=== PATIENT | female | born 1930 | race Caucasian/White ===

== ENCOUNTER 2018-07-17 14:25 | Outpatient (CLI) | payer MEDICARE ==
[2018-07-17 15:09] LABS: Hemoglobin 14.3 g/dL (12.0-16.0); Mean Corpuscular HGB CONC 31.9 g/dL (32.0-36.0); Mean Corpuscular Hemoglobin 29.9 pg (27.0-31.0); Mean Corpuscular Volume 93.8 fL (78.0-98.0); Mean Platelet Volume 7.2 fL (7.4-10.4); Platelet Count 244 thou/uL (130-400); RBC Distribution Width 12.9 % (11.5-14.5); Red Blood Cell (RBC) Count 4.77 mill/uL (4.20-5.40)
[2018-07-17 15:33] LABS: PTT 28.9 SEC (22.9-36.1); Prothrombin Time 13.5 SEC (12.0-14.7)
[2018-07-17 15:45] LABS: Anion Gap 12 mmol/L (10-20); BUN (Urea Nitrogen) 14 mg/dL (9.8-20.1); Calc. Creatinine Clearance 0 mL/min (70-130); Calcium 9.8 mg/dL (7.8-10.44); Carbon Dioxide 27 mmol/L (23-31); Chloride 103 mmol/L (98-107); Estimated GFR-MDRD 78; Glucose 105 mg/dL (83-110); Potassium 4.1 mmol/L (3.5-5.1); Sodium 138 mmol/L (136-145)
== END 2018-07-17 14:26 | disposition home or self-care (01) ==
LOC: LABBT 14:25
PROVIDERS: ATTEND Urology
DX: Z01.812 Encounter for preprocedural laboratory examination (principal); N32.9 Bladder disorder, unspecified
CPT/HCPCS: 80048; 85027; 85610; 85730

== ENCOUNTER 2018-07-23 11:07 | Day surgery (SDC) | payer MEDICARE ==
[2018-07-17 14:43] VITALS: BMI 23.6
[2018-07-23] MEDS ORDERED: cefTRIAXone\\ROCEPHIN 2 GM in Sodium Chloride 0.9% 100 ML IVPB SCH (12:15)
[2018-07-23] MEDS ORDERED: Fentanyl 100 MCG/2 ML VIAL ONE (12:51)
[2018-07-23] MEDS ORDERED: Glycopyrrolate 0.2 MG/ML 5 ML SYRINGE ONE (13:52)
[2018-07-23] MEDS ORDERED: PROPOFOL 200 MG/20 ML VIAL ONE (13:52)
[2018-07-23] MEDS ORDERED: ePHEDrine/0.9% NaCl/PF SYRINGE 50 mg/10 ml ONE (13:52)
[2018-07-23] MEDS ORDERED: Lidocaine 1% PF 5 ML VIAL ONE (13:52)
--- NOTE | 2018-07-23 14:20 | OP ---
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 POSTOPERATIVE DIAGNOSES: Colovesical fistula and bladder lesion. PROCEDURE: Cystoscopy, bladder biopsies. SURGEON: Elai Melton M.D. ANESTHESIA: General. ESTIMATED BLOOD LOSS: Minimal. FINDINGS: There was just one very small red area that did not even appear to be open at this point, could not get any air or any other extra vesicle drainage through it. It looks actually much smaller and blander than it did in my office 2 to 3 weeks ago when I initially saw her. We did biopsy the m ucosa just surrounding this area. OPERATIVE TECHNIQUE: After obtaining written and verbal consent from the patient after receiving IV antibiotics she was taken the operating suite. She was placed in supine position on the treatment ta ble. PlexiPulses were placed on her lower extremities and turned on. She was given a general anesth etic, oral obturator intubation. She was placed in the dorsal lithotomy position. She was sterilely prepped and draped. Cystoscopy was performed with a 22-Kiswahili sheath. This was well lubricated, pa ssed under direct vision through the male urethra into the urinary bladder with aid of a 30 degree le ns and a video camera and monitor. The bladder was filled and emptied a number of times. This was e xamined with both a 30 and the 70-degree lens with the findings above. There were 2 ureteral orifice s noted in normal position with good efflux. This site could not with bimanual exam with the cystosc ope in, could not get anything to exit into the bladder from an extra vesicle source. No air, no oth er contents or pus. As mentioned, it looks much smaller and blander than it did look in the office. It may be that this fistula has closed. Because of the mucosa around it we biopsied just a couple c old cups and we just cauterized the biopsy sites. A catheter was not placed. The patient was then t adelaideen out of dorsal lithotomy position, awakened, extubated, and taken by aidan to the recovery ro om.
== END 2018-07-23 16:40 | disposition home or self-care (01) ==
LOC: SDC 11:07
PROVIDERS: ATTEND Urology
PROC: 0TBB8ZX Excision of Bladder, Via Natural or Artificial Opening Endoscopic, Diagnostic (ICD-10-PCS; principal; 2018-07-23)
DX: N30.80 Other cystitis without hematuria (principal); N32.1 Vesicointestinal fistula; F32.9 Major depressive disorder, single episode, unspecified; Z86.73 Personal history of transient ischemic attack (TIA), and cerebral infarction without residual deficits; Z87.891 Personal history of nicotine dependence; Z79.899 Other long term (current) drug therapy
CPT/HCPCS: 88305; J0696; J2001; J2704; J3010; J7050

== ENCOUNTER 2019-04-11 10:42 | Inpatient (IN) | payer MEDICARE, MEDICAID ==
[2019-04-11] MEDS ORDERED: Ondansetron PF 4 MG/2 ML Vial ONE (11:23)
--- NOTE | 2019-04-11 11:28 | RAD ---
XR Chest 1 View Portable History: Dizziness and confusion Comparison: None. Findings: Heart size is enlarged. The lungs are hyperinflated. No pneumothorax. Mild tortuosity of th e aorta. No focal airspace consolidation. No acute osseous abnormality. Impression: Chronic findings. No acute intrathoracic abnormality.
[2019-04-11 11:48] LABS: Hemoglobin 9.5 g/dL (12.0-16.0); Mean Corpuscular HGB CONC 32.7 g/dL (32.0-36.0); Mean Corpuscular Hemoglobin 30.3 pg (27.0-31.0); Mean Corpuscular Volume 92.5 fL (78.0-98.0); Mean Platelet Volume 10.1 fL (7.4-10.4); Platelet Count 66 thou/uL (130-400); RBC Distribution Width 15.1 % (11.5-14.5); Red Blood Cell (RBC) Count 3.14 mill/uL (4.20-5.40); White Blood Cell (WBC) Count 5.3 thou/uL (4.8-10.8)
[2019-04-11 11:59] LABS: Bacteria/HPF None Seen HPF (None Seen); Bilirubin Negative (Negative); Blood, Urine Negative (Negative); Clarity Clear (Clear); Glucose, Urine (Dipstick) Normal (Negative); Leukocyte 25 Leu/uL (Negative); Nitrite Negative (Negative); Protein, Urine (Dipstick) 20 mg/dL (Neg-Trace); RBC/HPF 0-3 HPF (0-3); Squamous Epithelial 0-3 HPF (0-3); Urobilinogen Normal mg/dL (Less than 2); WBC/HPF 0-3 HPF (0-3)
--- NOTE | 2019-04-11 12:03 | CT ---
Exam: Head CT without contrast HISTORY: Weakness. Dizziness. Confusion. COMPARISON: 04/20/2018 FINDINGS: Hemorrhage: There is a intraparenchymal hemorrhage/hematoma centered in the right frontal lobe measur ing 2.1 x 1.5 cm. There is a small focus of adjacent parenchymal hemorrhage as well as subarachnoid blood. There is associated edema in the right frontal lobe with sulcal effacement. There is evidence of subarachnoid blood along the left frontal, posterior left temporal, left occipital and posterior right temporal subarachnoid space. There is a small extra-axial hematoma along the left occipital con vexity likely representing a small subdural. There is also evidence of extra-axial hematoma along the left frontal and temporal extra-axial space. Brain parenchyma: The remainder the cerebrum is unremarkable. There is no significant midline shift. Basilar cisterns are patent. Ventricular system: Ventricles and sulci are patent and symmetric. Calvarium: Intact. Sinuses and mastoid air cells: Adequate aeration. IMPRESSION: 1. Intraparenchymal hemorrhage involving the right frontal lobe along with subarachnoid blood along t he right frontal sulci, left temporal, left occipital and right temporal sulci. 2. Small left occipital, frontal and temporal subdural hematoma Results study discussed with Pantera Lopez nurse practitioner 04/11/2019 at 11:57 AM Code CR
[2019-04-11 12:05] LABS: ALT (SGPT) 24 U/L (8-55); AST (SGOT) 52 U/L (5-34); Albumin 2.5 g/dL (3.4-4.8); Alkaline Phosphatase 188 U/L (40-150); Anion Gap 16 mmol/L (10-20); BUN (Urea Nitrogen) 92 mg/dL (9.8-20.1); Bilirubin, Total 0.7 mg/dL (0.2-1.2); Calc. Creatinine Clearance 0 mL/min (70-130); Calcium 8.3 mg/dL (7.8-10.44); Carbon Dioxide 20 mmol/L (23-31); Chloride 103 mmol/L (98-107); Estimated GFR-MDRD 7; Globulin 3.3 g/dL (2.4-3.5); Glucose 177 mg/dL (83-110); Potassium 5.7 mmol/L (3.5-5.1); Protein, Total 5.8 g/dL (6.0-8.3); Sodium 133 mmol/L (136-145)
--- NOTE | 2019-04-11 12:05 | CT ---
Exam: CT cervical spine without contrast HISTORY: Trauma. Pain. COMPARISON: None FINDINGS: No craniocervical dissociation. Appropriate alignment of the lateral masses of C1 and C2. Intact odon toid process Appropriate alignment of the facets. Soft tissue neck structures: No mass, lymphadenopathy or hematoma. No prevertebral soft tissue swelli ng. Upper mediastinum and lung apices: Unremarkable Central spinal canal: There are varying degrees of central canal stenosis and neural foraminal narrow ing on the basis of degenerative change. Evaluation is limited by technique. Vertebral bodies: Cervical spine vertebral body height is maintained. No fracture. There is diffuse b one demineralization IMPRESSION: No fracture.
[2019-04-11 12:12] LABS: Band 11 % (5-11); Eosinophils 1 % (0-10); Lymphocytes 18 % (21-51); MDiff Complete? YES; Monocytes 8 % (0-10); Neutrophil 62 % (42-75); Platelet Morphology Comment Appears Decreased; Polychromasia SLIGHT = 2-3 cells (100X) (0-2/hpf)
[2019-04-11] MEDS ORDERED: Dextrose 5% in Water 1,000 ML IV PRN (13:06)
[2019-04-11] MEDS ORDERED: Ondansetron PF 4 MG/2 ML Vial IVP PRN (13:06)
[2019-04-11] MEDS ORDERED: Ondansetron ODT 4 MG TAB PO PRN (13:06)
[2019-04-11] MEDS ORDERED: Dextrose 50% Abboject 50 ML SYRINGE SLOW IVP PRN (13:06)
[2019-04-11] MEDS ORDERED: hydrALAZINE 20 MG/ML VIAL SLOW IVP PRN (13:06)
[2019-04-11] MEDS ORDERED: Sodium Chloride 0.9% 1,000 ML IV SCH (13:15)
[2019-04-11 14:02] LABS: Magnesium 2.2 mg/dL (1.6-2.6); Phosphorus 5.3 mg/dL (2.3-4.7)
[2019-04-11] MEDS ORDERED: Acetaminophen 500 MG TAB PO PRN (14:10)
[2019-04-11 15:00] LABS: Hemoglobin A1c 4.8 % (4.0-6.0)
[2019-04-11 15:15] VITALS: BMI 20.9
[2019-04-11] MEDS: Sodium Bicarbonate 100 MEQ in Dextrose 5% in Water 1,000 ML IV SCH (16:05)
--- NOTE | 2019-04-11 17:00 | HP ---
REQUESTING PHYSICIAN: Dr. Buitrago. CONSULTS: Neurosurgery, Dr. Sherwood. HISTORY OF PRESENT ILLNESS: This is an 88-year-old female, who lives at [facility], who fell approximately 5 days ago. The patient has been weak, dizzy, and confused according to family. Family also reports that the patient had one episode of vomiting this morning. The patient also had low blood pressure and incontinent for the last couple of days. The patient did sustain a bruise to the left side of her head when she fell 5 days ago, but did not have any vomiting after that initial fall. The patient was treated for a UTI recently and has completed all of her oral antibiotics. According to family, the patient takes Lasix for occasional ankle swelling. The family also reports that they have seen a decline in the last approximately 9 months, but significant decline after the fall. The patient was normally able to use a walker before, but has not been able to since the fall. Also, the patient has not been able to feed herself. All subjective information has been collected by the patient's daughters. The patient is awake , alert, oriented to person and place only at this time. Family states she normally knows the date. The patient did receive 1 L of normal saline in the emergency room. The patient also received Zofran IV for nausea. REVIEW OF SYSTEMS: A 10-point review of systems is negative unless otherwise indicated in the above HPI. MEDICATIONS: Lasix prn, ASA 81mg QD, Vitamin D. PAST MEDICAL HISTORY: Denies any past medical history. PAST SURGICAL HISTORY: Biopsy of bladder in 2018 which was benign, hysterectomy. ALLERGIES: DENIES ANY DRUG ALLERGIES. SOCIAL HISTORY: The patient lives in a usp, [place] [facility], former smoker since the patient was 18. According to family, she stopped smoking approximately 15 years ago. No alcohol use. No illicit drug use. PHYSICAL EXAMINATION: VITAL SIGNS: Blood pressure 114/77, pulse 92, respirations 24, temperature 97.3 , and SpO2 of 99% on room air. GENERAL: Elderly appearing female, slow to answer questions, alert to person and place only, follows all simple commands. HEENT: Ecchymosis to the left frontal and temporal area of the head. Pupils equal and reactive at 3 mm bilateral. Mucous membranes are dry. RESPIRATORY: Slightly tachypneic. No retractions. Slightly diminished in the bases. Rhonchi in the right lower lobe. CARDIOVASCULAR: Regular rate and regular rhythm. Distant heart sounds. ABDOMEN: Soft, nontender, and nondistended. Active bowel sounds. EXTREMITIES: Moves all extremities. Strength 5/5. 2+ pitting edema to lower extremities. Positive pedal pulses. NEUROLOGIC: Speech is normal. Cranial nerves intact. No focal sensory deficits. Oriented to person and place only. Follows commands. Slow to answer most questions. LABORATORY DATA: WBC 5.3, RBC 3.14, hemoglobin 9.5, hematocrit 29.1, platelets 66. Sodium 133, potassium 5.7, chloride 103, carbon dioxide 20, anion gap 16, BUN 92 , creatinine 5.84, estimated GFR 7, glucose 177, lactate 3.8, calcium 8.3, phosphorus 5.3, magnesium 2.2. AST 52, ALT 27, alkaline phos 188. Troponin I is 0.014. BNP 80.9. Serum total protein 5.8, albumin 2.5, globulin 3.3, and albumin-globulin ratio 0.8. Urinalysis unremarkable. DIAGNOSTICS: Chest x-ray reveals cardiomegaly, no acute intrathoracic abnormalities. Cervical spine CT, no fracture. Brain CT; impression, right frontal intraparenchymal hemorrhage. Subarachnoid hemorrhage, right frontal, left temporal, left occipital, and right temporal sulci. Small subdural hemorrhage left occipital, frontal, temporal. EKG, sinus rhythm with no ST or T-wave abnormality. IMPRESSION: 1. Status post ground level fall with delayed presentation. 2. Dehydration. 3. Intraparenchymal hemorrhage. 4. Subdural hemorrhage. 5. Subarachnoid hemorrhage. 6. Acute on chronic kidney injury. 7. Hyperkalemia. 8. Lactic acidosis. 9. Thrombocytopenia. 10. Cardiomegaly. PLAN: We will admit the patient to the [facility] with q.2 neuro checks. We will hold the patient's daily aspirin and Lasix. We will obtain strict I's and O's. We will resuscitate the patient and monitor urine output. We will obtain a 2D echo. Neurosurgery has evaluated the patient and states the patient most likely nonsurgical. We will obtain a repeat head CT in the morning. We will obtain sooner for any neuro changes. We will repeat labs in the morning to evaluate renal function. The plan has been discussed with the attending Dr. Silva, who agrees. Job ID: [id number] LEROY
[2019-04-11] MEDS: Famotidine/PF 20 mg/2ml Vial SLOW IVP SCH (20:39)
[2019-04-11] MEDS: Acetaminophen 1,000 MG in Premix Bag 1 BAG IVPB SCH (22:16)
--- NOTE | 2019-04-12 00:06 | CON ---
DATE OF CONSULTATION: This is an 88-year-old woman, who was brought to the [facility] via EMS after onset of altered mental status and reduced level of consciousness. She actually reportedly suffered a fall 5 days ago with visible ecchymosis over the left orbit and forehead. CT scan was performed in the department that reveals a right frontal contusion with surrounding vasogenic edema, as well as a thin left-sided subdural hematoma spanning the right frontotemporal convexity with minimal compression if any of the underlying brain parenchyma. She is on aspirin, but no other blood thinners. Neurosurgery was consulted for these findings. I am seeing the patient at bedside along with Jacquie Siegel, trauma [employer] [employer], who is performing the examination at bedside. I have deferred my examination to her as I speak with family. The patient is awake and interactive. She is oriented to name and date of , as well as that she is in fact in the hospital. Otherwise, she is mostly confused and slow to respond. She has equally round and reactive pupils. Extraocular movements are intact. She does not complain of any significant pain. C-spine is nontender. Range of motion intact in all 4 extremities. She follows commands briskly. From Neurosurgery's perspective, this bleed represent nonsurgical injury and likely has been there since the fall 5 days ago. Given the amount of vasogenic edema, we would recommend repeat imaging in the morning to be certain that this is not an evolving hemorrhage. I discussed with the family that again no intervention is planned unless things dramatically change. She will just need imaging tomorrow and then if that is stable, can be discharged back to the half-way with extended followup around 4 to 6 weeks from now with repeat head CT at that time. This was discussed with trauma team in the room. Job ID: [id number]
[2019-04-12] MEDS ORDERED: Sodium Chloride 0.9% 500 ML IV SCH ×2 (01:15→01:30)
[2019-04-12 01:28] LABS: #Lymphocytes 0.7 thou/uL (1.20-3.40); #Monocytes 0.5 thou/uL (0.11-0.59); #Neutrophils 2.5 thou/uL (1.40-6.50); %Basophils 0.5 % (0.0-1.0); %Eosinophils 0.6 % (0.0-10.0); %Lymphocytes 18.1 % (21.0-51.0); %Monocytes 13.5 % (0.0-10.0); %Neutrophils 67.3 % (42.0-75.0); Hemoglobin 8.3 g/dL (12.0-16.0); Mean Corpuscular HGB CONC 34.1 g/dL (32.0-36.0); Mean Corpuscular Hemoglobin 31.6 pg (27.0-31.0); Mean Corpuscular Volume 92.6 fL (78.0-98.0); Mean Platelet Volume 10.1 fL (7.4-10.4); Platelet Count 58 thou/uL (130-400); RBC Distribution Width 15.1 % (11.5-14.5); Red Blood Cell (RBC) Count 2.64 mill/uL (4.20-5.40); White Blood Cell (WBC) Count 3.7 thou/uL (4.8-10.8)
[2019-04-12 01:43] LABS: Lactic Acid 1.7 mmol/L (0.5-2.2)
[2019-04-12 01:49] LABS: Anion Gap 12 mmol/L (10-20); BUN (Urea Nitrogen) 66 mg/dL (9.8-20.1); Calc. Creatinine Clearance 12 mL/min (70-130); Calcium 8.2 mg/dL (7.8-10.44); Carbon Dioxide 21 mmol/L (23-31); Chloride 106 mmol/L (98-107); Estimated GFR-MDRD 15; Glucose 138 mg/dL (83-110); Magnesium 2.3 mg/dL (1.6-2.6); Phosphorus 4.2 mg/dL (2.3-4.7); Potassium 4.6 mmol/L (3.5-5.1); Sodium 134 mmol/L (136-145)
--- NOTE | 2019-04-12 01:59 | PRG ---
DATE OF SERVICE: 04/11/2019 SUBJECTIVE: The patient was seen today during evening rounds in the IMCU. Patient's daughter at bedside at reported the patient's mentation had not changed. However, she was concerned because the patient was moaning intermittently during her sleep. She was easily arousable and follows commands. She answered most questions with no. Daughter reported that this is normal for her. She has dementia and usually replies no to most questions. She has been n.p.o. and is currently being fluid resuscitated with sodium bicarb at 100 mL/hour. Mentation has not changed and her GCS is 14 with -1 for verbal. OBJECTIVE: VITAL SIGNS: The patient is afebrile, and hemodynamically stable at the time of my evaluation. GENERAL: Frail elderly female, lying in bed with no signs of acute distress. PULMONARY: Equal chest rise and fall. Clear breath sounds bilaterally. No signs of acute respiratory distress. CARDIAC: Regular rate and rhythm. ABDOMEN: Soft, nontender and nondistended. EXTREMITIES: 2+ pulses in all extremities. Gross motor and sensation are intact. NEUROLOGIC: GCS is 14, -1 for verbal. Follows commands, however with equal strength. ASSESSMENT: 1. Status post fall and subsequent decompensation. 2. Failure to thrive. 3. Right frontal intraparenchymal hematoma. 4. Subarachnoid hemorrhage is in the right frontal, left occipital and left temporal sulci. 5. Left small subdural hematoma in the occipital frontal and temporal regions. 6. Acute kidney injury. 7. Dehydration. 8. Hyponatremia. 9. Hyperkalemia. 10. Acute traumatic pain. PLAN: We will continue current diet as previously prescribed by the day team. Continue bicarb at 100 an hour and monitor urinary output closely. We will discontinue p.o. Tylenol and place the patient on scheduled Ofirmev 1 g q.6 hours as she is n.p.o. and has difficulty swallowing at baseline. After her repeat head CT tomorrow, if it is stable, we will ask speech to see the patient for further recommendations. At that time, we will consider restarting p.o. medications. The patient is also to work with Physical and Occupational Therapy and is pending a 2D echo as well. Job ID: [id number]
[2019-04-12] MEDS ORDERED: Hydrocortisone Sod Succ/PF 100 mg/2 ml Vial IVP SCH (03:15)
[2019-04-12] MEDS: Acetaminophen 1,000 MG in Premix Bag 1 BAG IVPB SCH ×3 (04:03→15:56)
[2019-04-12] MEDS: Sodium Bicarbonate 100 MEQ in Dextrose 5% in Water 1,000 ML IV SCH ×2 (05:42→10:29)
--- NOTE | 2019-04-12 07:27 | PRG ---
DATE OF SERVICE: 04/12/2019 Ms. Pablo is an 88-year-old female, who presented with altered mental status. She had a CT scan performed, which reveals presence of a right frontal intraparenchymal hematoma consistent with contusion. I reviewed her images as well as the note and evaluation as dictated by Salvatore Means and agree with his assessment. The plan is one of nonoperative management. We will make appropriate outpatient followup plans for her. Should she have any change in neurologic status, feel free to re-consult us. Otherwise, her plan has to sign off. Job ID: [id number]
--- NOTE | 2019-04-12 08:07 | RAD ---
EXAM: CHEST ONE VIEW HISTORY: Decreased breath sounds, cough. COMPARISON: 04/11/2019 FINDINGS: Cardiac silhouette is accentuated by portable technique and patient rotation to the right but is stab le in size compared to prior exam. The lungs remain mildly hyperinflated. Mild chronic lung changes are seen. There is no consolidation or pleural fluid identified. Curvilinear radiopaque densities ove rlie the chest bilaterally related to overlying artifact. There is osteopenia. Degenerative change are seen in the spine. Vascular calcifications are seen in the thoracic aorta. IMPRESSION: Stable chest with mild chronic lung changes. No acute cardiopulmonary process is identified.
[2019-04-12] MEDS: Hydrocortisone Sod Succ/PF 100 mg/2 ml Vial IVP SCH ×3 (10:10→21:27)
--- NOTE | 2019-04-12 10:49 | CT ---
CT HEAD WITHOUT CONTRAST: Date: 04-12-19 at 9:00 a.m. Indications: Follow up hemorrhage. Comparison: 04-11-19 FINDINGS: The parenchyma hematoma in the right frontal lobe with surrounding edema does not appear significantl y changed in size or extent. Surrounding subarachnoid blood at this location appears unchanged as wel l. No midline shift. The small subdural hematoma over the left temporal lobe is also stable. Small amount of subarachnoid blood in the left temporal occipital region is unchanged. IMPRESSION: Stable CT head findings. POS: TPC
--- NOTE | 2019-04-12 19:59 | PRG ---
DATE OF SERVICE: 04/12/2019 SUBJECTIVE: This is an 88-year-old female, who remains in the [facility], status post fall 6 days ago. The patient had some hypotension overnight. The patient was treated for adrenal insufficiency and given IV fluids. The patient is currently awake, alert, and oriented to person and place at this time. The patient continues to follow commands. The patient has been n.p.o. The patient continues to have good urinary output. The patient this morning did aspirate some of her cranberry juice. OBJECTIVE: VITAL SIGNS: Heart rate 68, respirations 23, blood pressure 91/51, SpO2 98% on room air, temperature 93.8. GENERAL: The patient is awake, alert, oriented to person and place only. Follow simple commands, slow to answer questions. RESPIRATORY: Breathing is regular and nonlabored, equal chest rise and fall, mild rhonchi in the lower lobes. CARDIOVASCULAR: Regular rate, regular rhythm. ABDOMEN: Soft, nontender, nondistended. EXTREMITIES: Moves all extremities, 2+ pitting pedal edema, bilateral. NEUROLOGIC: No focal deficit. Follows commands. Slow to answer most questions. Speech is normal. LABORATORY DATA: WBC 3.7, RBC 2.64, hemoglobin 8.3, hematocrit 24.4, platelets 58. Sodium 134, potassium 4.6, chloride 106, BUN 66, creatinine 3.00 which is improved from yesterday. Glucose 138. Lactic acid improved 1.7, calcium 8.2, phosphorus 4.2, magnesium 2.3. BNP 140.3. Cortisol 14.8. DIAGNOSTICS: Chest x-ray, stable chest with mild chronic lung changes. No acute cardiopulmonary process is identified. Brain CT, stable CT head findings. IMPRESSION: 1. Status post ground-level fall with delayed presentation. 2. Dehydration, improving. 3. Intraparenchymal hemorrhage, stable. 4. Subdural hemorrhage, stable. 5. Subarachnoid hemorrhage, stable. 6. Qjdlg-gn-imyavew kidney injury. 7. Lactic acidosis, improved. 8. Thrombocytopenia. 9. Hypothermia. 10. Symptomatic blood loss anemia. 11. Aspiration. PLAN: We will obtain blood cultures and urine culture. We will place the patient on a warming blanket. We will transfuse 1 unit of warm packed red blood cells as the patient's hemoglobin has dropped and the patient is asymptomatic. We will place the patient on a regular pureed diet as the patient had some aspiration of regular fluids this morning. The patient was examined with Dr. Silva, during morning rounds. The plan was discussed with the patient and the family who agree. Job ID: [id number]
[2019-04-12] MEDS: Famotidine/PF 20 mg/2ml Vial SLOW IVP SCH (20:10)
[2019-04-12] MEDS: Acetaminophen 500 MG TAB PO SCH (21:27)
--- NOTE | 2019-04-12 21:34 | RAD ---
RADIOGRAPH CHEST 1 VIEW: 04/12/19 at 8:44 p.m. HISTORY: 88-year-old female status post aspiration. FINDINGS: There are no air space densities, pulmonary edema, pneumothorax, or cardiomegaly. The lateral costop hrenic angles are sharp. IMPRESSION: No acute cardiopulmonary findings. jn [] POS: CET
[2019-04-12 21:58] LABS: Hemoglobin 14.9 g/dL (12.0-16.0); Mean Corpuscular HGB CONC 36.1 g/dL (32.0-36.0); Mean Corpuscular Hemoglobin 33.1 pg (27.0-31.0); Mean Corpuscular Volume 91.6 fL (78.0-98.0); Mean Platelet Volume 8.9 fL (7.4-10.4); Platelet Count 55 thou/uL (130-400); RBC Distribution Width 15.7 % (11.5-14.5); Red Blood Cell (RBC) Count 4.49 mill/uL (4.20-5.40); White Blood Cell (WBC) Count 11.1 thou/uL (4.8-10.8)
[2019-04-12 22:10] LABS: Anisocytosis SLIGHT = 6-15 cells (100X) (0-5/hpf); Band 15 % (5-11); Lymphocytes 14 % (21-51); MDiff Complete? YES; Metamyelocyte 1 % (0-0); Monocytes 10 % (0-10); Myelocyte 1 % (0-0); Neutrophil 59 % (42-75); Platelet Morphology Comment Appears Decreased
[2019-04-12 22:58] LABS: Anion Gap 13 mmol/L (10-20); BUN (Urea Nitrogen) 38 mg/dL (9.8-20.1); Calc. Creatinine Clearance 26 mL/min (70-130); Calcium 8.7 mg/dL (7.8-10.44); Carbon Dioxide 24 mmol/L (23-31); Chloride 104 mmol/L (98-107); Estimated GFR-MDRD 37; Glucose 304 mg/dL (83-110); Phosphorus 2.5 mg/dL (2.3-4.7); Potassium 4.1 mmol/L (3.5-5.1); Sodium 137 mmol/L (136-145)
[2019-04-13] MEDS: Acetaminophen 500 MG TAB PO SCH ×4 (02:52→20:49)
[2019-04-13] MEDS: Hydrocortisone Sod Succ/PF 100 mg/2 ml Vial IVP SCH ×4 (04:09→21:00)
[2019-04-13 05:42] LABS: Lactic Acid 3.1 mmol/L (0.5-2.2)
[2019-04-13 05:49] LABS: Anion Gap 10 mmol/L (10-20); BUN (Urea Nitrogen) 40 mg/dL (9.8-20.1); Calc. Creatinine Clearance 30 mL/min (70-130); Calcium 8.4 mg/dL (7.8-10.44); Carbon Dioxide 26 mmol/L (23-31); Chloride 107 mmol/L (98-107); Estimated GFR-MDRD 43; Glucose 194 mg/dL (83-110); Phosphorus 3.1 mg/dL (2.3-4.7); Potassium 4.1 mmol/L (3.5-5.1); Sodium 139 mmol/L (136-145)
[2019-04-13 07:53] LABS: Anisocytosis SLIGHT = 6-15 cells (100X) (0-5/hpf); Band 19 % (5-11); Hemoglobin 10.9 g/dL (12.0-16.0); Large Platelets SLIGHT; Lymphocytes 9 % (21-51); MDiff Complete? YES; Mean Corpuscular HGB CONC 32.7 g/dL (32.0-36.0); Mean Corpuscular Hemoglobin 29.8 pg (27.0-31.0); Mean Corpuscular Volume 91.2 fL (78.0-98.0); Mean Platelet Volume 10.6 fL (7.4-10.4); Metamyelocyte 1 % (0-0); Monocytes 8 % (0-10); Neutrophil 63 % (42-75); Platelet Count 51 thou/uL (130-400); Platelet Morphology Comment Appears Decreased; RBC Distribution Width 15.7 % (11.5-14.5); Red Blood Cell (RBC) Count 3.65 mill/uL (4.20-5.40); White Blood Cell (WBC) Count 5.3 thou/uL (4.8-10.8)
--- NOTE | 2019-04-13 09:13 | RAD ---
PORTABLE CHEST ONE VIEW: 04/13/2019 5:10 a.m. HISTORY: Aspiration. COMPARISON: Exam from the previous day. FINDINGS: The heart size is normal. The aorta is tortuous. The lungs are well expanded without focal areas of consolidation, pneumothoraces, or pleural effusions. IMPRESSION: No acute process. POS: ROBERT
--- NOTE | 2019-04-13 10:58 | PRG ---
DATE OF SERVICE: 04/12/2019 SUBJECTIVE: The patient was seen this evening with daughter at bedside. She was more alert and talkative today than she was yesterday. She is tachycardic with a regular rhythm, heart rate anywhere between 100 and 120. She is hemodynamically stable however and has no complaints. There was a concern for aspiration earlier today when she tried to drink some cranberry juice. She does have a slight cough now. She was suctioned and the cough improved per report from Day Team. OBJECTIVE: VITAL SIGNS: The patient is afebrile, hemodynamically stable. Heart rate between 100 and 122, saturating 95% on room air. GENERAL: Elderly female, sitting up in bed with no signs of acute distress. PULMONARY: Equal chest rise and fall, clear breath sounds bilaterally. No signs of acute respiratory distress. CARDIAC: Irregularly irregular rate and rhythm. GI: Abdomen is soft, nontender, and nondistended. EXTREMITIES: 2+ pulses in all extremities. No significant swelling noted, gross motor and sensation are intact. NEUROLOGIC: GCS is 14, -1 for verbal. Pupils are equal, round, and reactive to light bilaterally. Gross motor and sensation are intact. LABORATORY FINDINGS: White count 11.1, hemoglobin 14.9, hematocrit 41.2, platelets 55. DIAGNOSTIC FINDINGS: Chest x-ray completed this evening demonstrates no acute cardiopulmonary findings. Echo completed and read this evening demonstrates ejection fraction is visualize estimated at 55% to 60%, mild mitral regurgitation is present, and mild tricuspid regurgitation. ASSESSMENT: 1. Status post fall 5 days before presentation. 2. Right frontal intraparenchymal hematoma, subdural hematomas and subarachnoid hematomas. 3. Acute kidney injury, improving. 4. Hyponatremia. 5. History of hypertension and dementia. PLAN: The patient appears to be in atrial fibrillation on the monitor in IMCU. EKG completed demonstrated sinus tachycardia. Chest x-ray was also completed as patient has slight cough and there is a concern for aspiration. We will continue to monitor closely. CBC and electrolytes were completed. We are still awaiting the results of the electrolytes, all followed that up as well. She did receive 1 unit of packed red blood cells today. Speech language pathology evaluated the patient and recommended a pureed diet. Those recommendations have been updated as well. She is to continue working with Physical and Occupational Therapy and will likely need [place] a [place] [facility] for [facility] and strength. Job ID: [id number]
[2019-04-13] MEDS: Sodium Chloride 0.9% 1,000 ML IV SCH (14:15)
--- NOTE | 2019-04-13 14:38 | PRG ---
DATE OF SERVICE: 04/13/2019 SUBJECTIVE: This is an 88-year-old female, who remains in the [facility], status post fall approximately 7 days ago with delayed presentation. The patient had no overnight events. The patient remains awake, alert, and oriented to person and place. The patient continues to follow simple commands. The patient continues to tolerate a pureed diet. Although this morning, the patient states she was not hungry. The patient continues to have good urinary output. OBJECTIVE: VITAL SIGNS: Blood pressure 102/66, temperature 98.1, respirations 27, heart rate 96, SpO2 of 97% on room air. GENERAL: Elderly appearing female, lying in hospital bed. The patient is awake and oriented to person and place only. The patient continues to follow simple commands and slow to answer questions. RESPIRATORY: Equal chest rise and fall, mildly tachypneic, bilateral breath sounds clear to auscultation. CARDIOVASCULAR: Regular rate and regular rhythm. ABDOMEN: Soft, nontender, nondistended. EXTREMITIES: Moves all extremities. 2+ pitting pedal edema bilateral. NEUROLOGIC: GCS 14. Oriented to person and place only. Follows commands. LABORATORY DATA: WBC 5.3, RBC 3.65, hemoglobin 10.9, hematocrit 33.3. Sodium 139, potassium 4.1, chloride 107, carbon dioxide 26, BUN 40, creatinine 1.18, estimated GFR 43, glucose 194, lactate 3.1, calcium 8.4, phosphorus 3.1, magnesium 2.0. BNP 274. DIAGNOSTIC DATA: Chest x-ray, heart size is normal, lungs are well expanded without focal areas of consolidation, no pneumothoraces or pleural effusions. Echocardiogram, ejection fraction visualized at 55% to 60%, mild mitral regurgitation is present, mild tricuspid regurgitation. IMPRESSION: 1. Status post ground level fall with delayed presentation. 2. Intraparenchymal hemorrhage, stable. 3. Dehydration, improved. 4. Subdural hemorrhage, stable. 5. Subarachnoid hemorrhage, stable. 6. Acute on chronic kidney injury, improving. 7. Lactic acidosis, improving. 8. Symptomatic blood loss anemia, improved. 9. Hypothermia, improved. 10. Thrombocytopenia. PLAN: Continue supportive care. Continue pureed diet. The patient's hemoglobin has been stable. We will move the patient to the floor later today. The patient is pending placement at this time. The plan was discussed with the attending who agrees. Job ID: [id number]
[2019-04-13] MEDS: Famotidine/PF 20 mg/2ml Vial SLOW IVP SCH (20:49)
--- NOTE | 2019-04-13 23:35 | PRG ---
DATE OF SERVICE: 04/13/2019 SUBJECTIVE: The patient was seen today during evening rounds. She was resting comfortably in bed and asleep. No acute events during the day. The patient's nurse reported no issues at this time. OBJECTIVE: VITAL SIGNS: The patient is afebrile and hemodynamically stable. She is intermittently tachycardic to the 100s and one-teens, which resolves on its own. She is breathing comfortably on room air. PULMONARY: Equal chest rise and fall. No signs of acute respiratory distress. ASSESSMENT: 1. Status post fall with delayed presentation. 2. Right sided multiple traumatic brain injuries. 3. Acute kidney injury, improving. 4. Dehydration. 5. Hyponatremia, resolved. 6. Hyperkalemia, resolved. 7. History of dementia. PLAN: Continue current diet and pain regimen. IV fluids were started at 50 an hour today as the patient's urinary output has dropped off and her lactic acid has increased slightly. We will also add on a calorie count to monitor the patient's nutritional intake. Continue physical and occupational therapy. Job ID: [id number]
[2019-04-14] MEDS: Acetaminophen 500 MG TAB PO SCH ×2 (02:43→10:18)
[2019-04-14] MEDS: Hydrocortisone Sod Succ/PF 100 mg/2 ml Vial IVP SCH ×3 (04:36→22:32)
[2019-04-14] MEDS: Sodium Chloride 0.9% 1,000 ML IV SCH ×2 (06:26→23:09)
[2019-04-14 09:00] LABS: Anion Gap 16 mmol/L (10-20); BUN (Urea Nitrogen) 42 mg/dL (9.8-20.1); Calc. Creatinine Clearance 45 mL/min (70-130); Calcium 8.8 mg/dL (7.8-10.44); Carbon Dioxide 18 mmol/L (23-31); Chloride 108 mmol/L (98-107); Estimated GFR-MDRD 70; Glucose 134 mg/dL (83-110); Magnesium 1.9 mg/dL (1.6-2.6); Potassium 4.3 mmol/L (3.5-5.1); Sodium 138 mmol/L (136-145)
[2019-04-14 09:15] LABS: Hemoglobin 13.1 g/dL (12.0-16.0); Large Platelets SLIGHT; MDiff Complete? YES; Mean Corpuscular HGB CONC 32.5 g/dL (32.0-36.0); Mean Corpuscular Hemoglobin 30.8 pg (27.0-31.0); Mean Corpuscular Volume 94.8 fL (78.0-98.0); Mean Platelet Volume 11.5 fL (7.4-10.4); Platelet Count 39 thou/uL (130-400); Platelet Morphology Comment Appears Decreased; RBC Distribution Width 15.5 % (11.5-14.5); Red Blood Cell (RBC) Count 4.26 mill/uL (4.20-5.40); White Blood Cell (WBC) Count 6.6 thou/uL (4.8-10.8)
[2019-04-14] MEDS ORDERED: Magnesium 2 GM/50 ML 2 GM in Premix Bag 1 BAG IVPB SCH (09:30)
--- NOTE | 2019-04-14 10:21 | RAD ---
Portable chest: HISTORY: Shortness of breath COMPARISON: 04/13/2019 FINDINGS:Heart size upper normal and stable. Mild vascular and interstitial prominence may represent mild congestion. This appears stable. No focal infiltrate. Tiny effusions cannot be excluded. IMPRESSION:Stable chest findings.
[2019-04-14] MEDS ORDERED: Furosemide 20 MG/2 ML VIAL SLOW IVP SCH (11:00)
[2019-04-14] MEDS: Acetaminophen 1,000 MG in Premix Bag 1 BAG IVPB SCH ×3 (12:00→23:09)
[2019-04-14 15:21] LABS: Lactic Acid 3.5 mmol/L (0.5-2.2)
[2019-04-14] MEDS: Famotidine/PF 20 mg/2ml Vial SLOW IVP SCH (20:19)
--- NOTE | 2019-04-14 21:30 | PRG ---
DATE OF SERVICE: 04/14/2019 SUBJECTIVE: This is an 88-year-old female who remains in the [facility], status post fall approximately 8 days ago with a delayed presentation. The patient had no overnight events. The patient seems less alert today and drowsy according to nurse and granddaughter. The patient opens eyes to voice and follows simple commands. The patient with minimal appetite today, although, the patient did eat very well yesterday. The patient currently with multiple blankets on and slightly tachycardic. PHYSICAL EXAMINATION: VITAL SIGNS: Temperature 103.2 rectal, heart rate 123, respirations 30, SpO2 99% on room air, blood pressure 145/68. GENERAL: Elderly appearing female, lying in hospital bed, awakens to voice, and oriented to person and place. Slow to answer questions, slow when following simple commands. RESPIRATORY: Mildly tachypneic, equal chest rise and fall, clear breath sounds in upper lobes, diminished breath sounds in the bases. CARDIOVASCULAR: Regular rate, regular rhythm, tachycardic. ABDOMEN: Soft, nontender, nondistended. EXTREMITIES: Moves all extremities; 2+ pitting pedal edema, bilateral, worse left than right; positive pedal pulses. NEUROLOGIC: GCS 14. LABORATORY DATA: WBC 6.6, RBC 4.26, hemoglobin 13.1, hematocrit 40.1, platelets 39. Sodium 138, potassium 4.3, chloride 108, carbon dioxide 18, BUN 42, creatinine 0.78, estimated GFR 70, glucose 134, calcium 8.8, phosphorus 3.0, magnesium 1.9. DIAGNOSTIC STUDIES: Chest x-ray, mild vascular and interstitial prominence may be present. Mild congestion. Tiny effusions cannot be excluded. 12-lead EKG with sinus tach, first-degree AV block with PACs. IMPRESSION: 1. Status post ground level fall with delayed presentation. 2. Intraparenchymal hemorrhage, stable. 3. Dehydration, improving. 4. Subdural hemorrhage, stable. 5. Subarachnoid hemorrhage, stable. 6. Ovylw-hx-dvlldtr kidney injury, improving. 7. Lactic acidosis, improving. 8. Symptomatic blood loss anemia, improved. 9. Hypothermia. 10. Thrombocytopenia. PLAN: Continue supportive care. Continue pureed diet. Continue mild maintenance fluids. Tylenol for fever. Urine culture and blood culture are negative for growth at 48 hours. We will taper the patient's Solu-Cortef. The plan was discussed with the attending who agrees. Job ID: [id number]
--- NOTE | 2019-04-15 03:27 | PRG ---
DATE OF SERVICE: 04/15/2019 SUBJECTIVE: The patient was seen this evening in the ICU during evening rounds. Nursing reported no acute events this evening. However, earlier today, she did have an episode of tachypnea, tachycardia, and elevated temperature. There has been no such episode thus far this evening. She is hemodynamically stable and continues to make good urine. OBJECTIVE: VITAL SIGNS: The patient is hemodynamically stable, intermittently mildly tachycardic with a heart rate of 100 that resolved spontaneously. Respiration rate is between 12 and 25. She has been afebrile since her one episode of fever. GENERAL: Elderly female, lying in bed with no signs of acute distress. PULMONARY: Equal chest rise and fall. No signs of acute respiratory distress. ASSESSMENT: 1. Status post fall 5 days before presentation. 2. Multiple intraparenchymal hemorrhages, subarachnoid hemorrhages, and subdural hemorrhages. 3. Acute kidney injury and dehydration, resolved. 4. Hyponatremia and hyperkalemia, resolved. 5. History of dementia. PLAN: We will continue current diet and pain regimen. Continue to monitor urinary output closely. She is pending placement at a rehab facility. Continue to monitor closely for signs of infection. Job ID: [id number]
[2019-04-15] MEDS: Hydrocortisone Sod Succ/PF 100 mg/2 ml Vial IVP SCH (03:41)
[2019-04-15] MEDS: Acetaminophen 1,000 MG in Premix Bag 1 BAG IVPB SCH (05:27)
[2019-04-15 08:13] LABS: Mean Corpuscular HGB CONC 32.9 g/dL (32.0-36.0); Mean Corpuscular Hemoglobin 30.4 pg (27.0-31.0); Mean Platelet Volume 12.3 fL (7.4-10.4); Platelet Count 18 thou/uL (130-400); RBC Distribution Width 15.6 % (11.5-14.5)
[2019-04-15 08:27] LABS: Anion Gap 12 mmol/L (10-20); BUN (Urea Nitrogen) 45 mg/dL (9.8-20.1); Calc. Creatinine Clearance 50 mL/min (70-130); Calcium 8.5 mg/dL (7.8-10.44); Carbon Dioxide 23 mmol/L (23-31); Chloride 109 mmol/L (98-107); Estimated GFR-MDRD 79; Glucose 111 mg/dL (83-110); Magnesium 2.3 mg/dL (1.6-2.6); Phosphorus 4.4 mg/dL (2.3-4.7); Potassium 3.9 mmol/L (3.5-5.1); Sodium 140 mmol/L (136-145)
[2019-04-15] MEDS ORDERED: Sodium Chloride 0.9% (PF) 10 ML VIAL FS PRN (08:39)
[2019-04-15] MEDS: Pantoprazole 40 MG VIAL IVP SCH (08:57)
--- NOTE | 2019-04-15 09:50 | ULT ---
EXAM: Bilateral lower extremity venous duplex: Deep veins evaluated with color Doppler, spectral analysis, and compression. INDICATIONS: Bilateral lower extremity pain and edema. FINDINGS: Deep veins interrogated include common femoral vein, femoral vein, popliteal vein, and post erior tibial vein. There is decreased flow and reduced compressibility involving common femoral vein of left lower extre mity compatible with DVT. Right lower extremity deep veins show normal compression and blood flow. No evidence of DVT. IMPRESSION: DVT is present within left common femoral vein. Patient's nurse was notified of findings at the time of the exam.
[2019-04-15 11:20] LABS: Hemoglobin 12.5 g/dL (12.0-16.0); Mean Corpuscular Volume 91.9 fL (78.0-98.0); White Blood Cell (WBC) Count 6.2 thou/uL (4.8-10.8)
[2019-04-15 11:56] LABS: Band 42 % (5-11); Lymphocytes 9 % (21-51); MDiff Complete? YES; Monocytes 3 % (0-10); Neutrophil 45 % (42-75); Platelet Morphology Comment Appears Decreased; Polychromasia SLIGHT = 2-3 cells (100X) (0-2/hpf); Reactive Lymphocytes 1 % (0-10)
[2019-04-15 12:02] VITALS: BP 106/66
[2019-04-15] MEDS ORDERED: Acetaminophen 500 MG TAB PO PRN ×2 (15:05→18:03)
--- NOTE | 2019-04-15 16:39 | PRG ---
DATE OF SERVICE: 04/15/2019 SUBJECTIVE: Ms. Pablo is an 88-year-old woman, who is post injury day #4, status post ground level fall. The patient sustained multiple small intracranial hemorrhages, which are relatively stable on a repeat head CT scan. This morning, she is awake and alert and intermittently confused at baseline. The patient did present on admission with acute kidney injury. Creatinine as high as 5.84. Currently, she makes good urine. Serum creatinine is normalizing now. Overnight, the patient developed fever associated with tachycardia, maximum temperature was 103 degrees Fahrenheit. OBJECTIVE: VITAL SIGNS: This morning, blood pressure is 102/70, pulse is 92, respiratory rate 26, temperature 98 degrees Fahrenheit, oxygen saturation is 93% on room air. HEART: Regular rate and rhythm. No murmurs or gallops auscultated. LUNGS: Clear to auscultation bilaterally. Breathing, regular and nonlabored. ABDOMEN: Soft, nontender, nondistended. EXTREMITIES: 2+ radial and pedal pulses bilaterally. No ankle edema is present. NEUROLOGIC: No focal deficits present. LABORATORY FINDINGS: Today includes a CBC with 6200 white blood cells, hemoglobin and hematocrit 12.5 and 37.7 respectively, platelet count is 18,000. Differential counts as follows; 45 neutrophils, 42% bands, 9 lymphocytes, and 3 monocytes. Note that the admitting platelet count is 66,000. Metabolic profile; sodium 140, potassium 3.9, chloride is 109, bicarb is 23, BUN is 45, creatinine is 0.70, glucose is 111, magnesium is 2.3, phosphorus is 4.4. Lower extremity duplex sonogram was obtained today, which reveals a DVT within the left common femoral vein. IMPRESSIONS: 1. Post injury #15, status post ground level fall. 2. Acute traumatic brain injury with multiple parenchymal hemorrhagic contusions. 3. Acute left lower extremity proximal deep venous thrombosis. 4. 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 5. Resolved acute kidney injury. PLAN: 1. We will discuss with the patient's power of consumer attorney with regard to the left lower extremity deep venous thrombosis. The patient has a contraindication for full anticoagulation, given recent traumatic brain injury. We will therefore discuss the options of IVC filter placement versus palliative care. 2. The patient is hemodynamically and neurologically stable for transfer to general surgical floor. Job ID: [id number]
[2019-04-15] MEDS ORDERED: Dexamethasone 4 MG TAB PO SCH (17:00)
[2019-04-15] MEDS ORDERED: Morphine 4 MG/ML VIAL ONE (17:35)
[2019-04-15] MEDS ORDERED: Dexamethasone 4 mg/ml Vial SLOW IVP SCH (18:00)
[2019-04-15] MEDS ORDERED: Morphine 2 MG/ML SYRINGE SLOW IVP SCH ×2 (18:00)
[2019-04-15] MEDS: Dexamethasone 4 mg/ml Vial SLOW IVP SCH (18:29)
[2019-04-16] MEDS: Dexamethasone 4 mg/ml Vial SLOW IVP SCH ×3 (00:28→11:19)
--- NOTE | 2019-04-16 01:02 | PRG ---
DATE OF SERVICE: 04/15/2019 The patient was seen today during evening rounds, multiple family members at bedside. During the day, the patient had decline in her overall condition. There was a meeting with the family, who recommended the patient be DNR and in comfort measures. Also, DVT of the left femoral vein was discovered. The family is reporting they would not like any intervention for that. They are scheduled to speak with Dr. Silva tomorrow morning to further discuss the DVT and additional palliative care needs. Palliative Care was consulted this afternoon. Case Management has begun working on hospice. The patient's family did request removal of the patient's IV fluids. Also, she was given additional pain medications to make her comfortable. On my evaluation, she was resting comfortable in bed with no signs of acute respiratory distress. She has been tachycardic into the 130s, 120s and hypotensive. Family requested Duran stay in. We will continue to monitor her closely and provide the family with any resources that is appropriate. We will also continue to answer questions and make sure that the patient is comfortable throughout the evening. Job ID: [id number]
[2019-04-16] MEDS: Sodium Chloride 0.9% 1,000 ML IV SCH (02:25)
[2019-04-16 05:56] LABS: Anion Gap 17 mmol/L (10-20); BUN (Urea Nitrogen) 66 mg/dL (9.8-20.1); Calc. Creatinine Clearance 27 mL/min (70-130); Calcium 8.2 mg/dL (7.8-10.44); Carbon Dioxide 18 mmol/L (23-31); Chloride 110 mmol/L (98-107); Estimated GFR-MDRD 39; Glucose 136 mg/dL (83-110); Magnesium 2.3 mg/dL (1.6-2.6); Phosphorus 5.9 mg/dL (2.3-4.7); Potassium 4.7 mmol/L (3.5-5.1); Sodium 140 mmol/L (136-145)
[2019-04-16 06:05] LABS: Band 24 % (5-11); Hemoglobin 10.9 g/dL (12.0-16.0); Lymphocytes 6 % (21-51); MDiff Complete? YES; Mean Corpuscular HGB CONC 32.9 g/dL (32.0-36.0); Mean Corpuscular Hemoglobin 30.5 pg (27.0-31.0); Mean Corpuscular Volume 92.7 fL (78.0-98.0); Mean Platelet Volume 11.1 fL (7.4-10.4); Monocytes 7 % (0-10); Myelocyte 1 % (0-0); Neutrophil 62 % (42-75); Platelet Count 32 thou/uL (130-400); Platelet Morphology Comment Appears Decreased; RBC Distribution Width 15.7 % (11.5-14.5); Red Blood Cell (RBC) Count 3.58 mill/uL (4.20-5.40); White Blood Cell (WBC) Count 5.8 thou/uL (4.8-10.8)
[2019-04-16] MEDS: Pantoprazole 40 MG VIAL IVP SCH (08:43)
[2019-04-16] MEDS: Morphine 2 MG/ML SYRINGE SLOW IVP PRN ×2 (11:20→13:55)
--- NOTE | 2019-04-16 14:11 | PDOC.PALCO ---
Palliative Care Consult - Allergies Allergies/Adverse Reactions: Allergies Allergy/AdvReac Type Severity Reaction Status Date / Time No Known Allergies Allergy Unverified 07/17/18 14:41 - Objective Vital Signs: Vital Signs - Most Recent Temp Pulse Resp BP Pulse Ox 97.1 F L 144 H 30 H 106/66 95 04/16/19 07:28 04/15/19 17:32 04/15/19 17:32 04/15/19 10:41 04/16/19 08:00 - Plan/Recommendations Plan: [] minutes spent on this encounter with >50% of the time in counseling and coordination of care. Thank you for this very appropriate consult.
[2019-04-16 14:58] VITALS: TEMP 97.5
--- NOTE | 2019-04-16 18:37 | DIS ---
DATE OF ADMISSION: 04/11/2019 DATE OF DISCHARGE: 04/16/2019 ADMISSION DIAGNOSES: 1. Status post ground level fall with delayed presentation, 5 days prior. 2. Dehydration. 3. Intraparenchymal hemorrhage. 4. Subdural hemorrhage. 5. Subarachnoid hemorrhage. 6. Xlwtc-lb-evqcsso kidney injury. 7. Hyperkalemia. 8. Lactic acidosis. 9. Chronic thrombocytopenia. 10. Cardiomegaly. CONSULTATIONS: Neurosurgery, Dr. Sherwood. PROCEDURES: None. SUMMARY: The patient is an 88-year-old woman, who presented to the emergency department approximately five days after having a ground level fall. The patient was brought to the emergency department after having altered mental status and essentially collapsing in front of family. With evaluation and examination, she was noted to have the above injuries. The patient will be admitted to the [facility] for frequent neuro checks. Following day, the repeat head CT shows slight evolution, but essentially remained stable. 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 The patient during hospital stay was noted to become febrile, tachycardic. She underwent full evaluation to include blood cultures and an ultrasound of her lower extremities, which revealed a left common femoral vein DVT. In light of her thrombocytopenia or intracranial hemorrhages and now her DVT, Dr. Silva had lengthy conversation with potential treatments and the outcomes, all of which were poor. The daughter who had power of research attorney understood this. On the day of discharge, Dr. Silva again had a lengthy conversation with other family members, who agreed to comfort measures and the patient was arranged for inpatient hospice care. Dr. Silva was able to answer all their questions at that time. The patient will follow up with Neurosurgery as indicated. Job ID: [id number]
--- NOTE | 2019-04-16 22:40 | EKG ---
Test Reason : CB Blood Pressure : / mmHG Vent. Rate : 076 BPM Atrial Rate : 076 BPM P-R Int : 190 ms QRS Dur : 076 ms QT Int : 418 ms P-R-T Axes : 081 -12 051 degrees QTc Int : 470 ms Sinus rhythm with Premature supraventricular complexes Low voltage QRS Cannot rule out Anterior infarct , age undetermined Abnormal ECG When compared with ECG of 11-APR-2019 11:32, (Unconfirmed) Premature supraventricular complexes are now Present Confirmed by Damien MCKAY ([id number]) on 04/16/2019 10:40:02 PM Referred By: MARÍA Confirmed By:Damien MCKAY
--- NOTE | 2019-04-16 22:43 | EKG ---
Test Reason : Blood Pressure : / mmHG Vent. Rate : 116 BPM Atrial Rate : 116 BPM P-R Int : 198 ms QRS Dur : 080 ms QT Int : 296 ms P-R-T Axes : 068 -10 049 degrees QTc Int : 411 ms Sinus tachycardia Low voltage QRS Cannot rule out Inferior infarct (cited on or before 12-APR-2019) Cannot rule out Anterior infarct (cited on or before 12-APR-2019) Abnormal ECG When compared with ECG of 12-APR-2019 21:04, (Unconfirmed) No significant change was found Confirmed by Damien MCKAY ([id number]) on 04/16/2019 10:42:46 PM Referred By: MARÍA Confirmed By:Damien MCKAY
--- NOTE | 2019-04-16 22:43 | EKG ---
Test Reason : Blood Pressure : / mmHG Vent. Rate : 117 BPM Atrial Rate : 117 BPM P-R Int : 198 ms QRS Dur : 074 ms QT Int : 298 ms P-R-T Axes : 077 -06 053 degrees QTc Int : 415 ms Sinus tachycardia Low voltage QRS Cannot rule out Inferior infarct , age undetermined Cannot rule out Anterior infarct (cited on or before 12-APR-2019) Abnormal ECG When compared with ECG of 12-APR-2019 01:35, (Unconfirmed) Premature supraventricular complexes are no longer Present Vent. rate has increased BY 41 BPM Confirmed by Damien MCKAY ([id number]) on 04/16/2019 10:42:39 PM Referred By: MARÍA Confirmed By:Damien MCKAY
--- NOTE | 2019-04-16 22:45 | EKG ---
Test Reason : Blood Pressure : / mmHG Vent. Rate : 107 BPM Atrial Rate : 107 BPM P-R Int : 168 ms QRS Dur : 076 ms QT Int : 312 ms P-R-T Axes : 064 -15 050 degrees QTc Int : 416 ms Sinus tachycardia with Premature atrial complexes Low voltage QRS Cannot rule out Anterior infarct (cited on or before 12-APR-2019) Abnormal ECG When compared with ECG of 12-APR-2019 21:05, (Unconfirmed) Premature atrial complexes are now Present Confirmed by Damien MCKAY ([id number]) on 04/16/2019 10:44:47 PM Referred By: DUKE SHINE Confirmed By:Damien MCKAY
== END 2019-04-16 15:13 | disposition hospice, inpatient (51) | DRG 83 ==
LOC: ERS 10:42 → IMCU/EMU 14:21
PROVIDERS: ADMIT Surgery; ATTEND Surgery
DX: S06.5X9A Traumatic subdural hemorrhage with loss of consciousness of unspecified duration, initial encounter (principal); N17.9 Acute kidney failure, unspecified; E87.2 Acidosis; E87.1 Hypo-osmolality and hyponatremia; E27.40 Unspecified adrenocortical insufficiency; I82.4Y2 Acute embolism and thrombosis of unspecified deep veins of left proximal lower extremity; D69.3 Immune thrombocytopenic purpura; Z51.5 Encounter for palliative care; Z66 Do not resuscitate; E86.0 Dehydration; S06.6X9A Traumatic subarachnoid hemorrhage with loss of consciousness of unspecified duration, initial encounter; I95.9 Hypotension, unspecified; R40.2213 Coma scale, best verbal response, none, at hospital admission; R62.7 Adult failure to thrive; E87.5 Hyperkalemia; I48.91 Unspecified atrial fibrillation; D69.6 Thrombocytopenia, unspecified; D50.0 Iron deficiency anemia secondary to blood loss (chronic); G30.9 Alzheimer's disease, unspecified; F02.80 Dementia in other diseases classified elsewhere, unspecified severity, without behavioral disturbance, psychotic disturbance, mood disturbance, and anxiety; S06.1X9A Traumatic cerebral edema with loss of consciousness of unspecified duration, initial encounter; I51.7 Cardiomegaly; W01.0XXA Fall on same level from slipping, tripping and stumbling without subsequent striking against object, initial encounter; Y93.9 Activity, unspecified
CPT/HCPCS: 36415; 36416; 36430; 70450; 71045; 72125; 80048; 80053; 81003; 81015; 82533; 83036; 83605; 83735; 83880; 84100; 84484; 85007; 85025; 85027; 86850; 86900; 86901; 87040; 87086; 93005; 93010; 93306; 93970; 94640; A4353; C9113; J0131; J1100; J1720; J1940; J2270; J2405; J3475; J7070; J7620; J8540; P9016; P9035; S0028